=== PATIENT | female | born 1960 | race Caucasian/White ===

== ENCOUNTER 2025-02-16 08:43 | Emergency (ER) | payer MEDICARE, OTHER, SELFPAY ==
[2025-02-16 08:46] VITALS: BP 135/69; PULSE 79; RESP 18; TEMP 36.8; O2SAT 99
--- NOTE | 2025-02-16 09:15 | DI.RAD_ITS ---
Exam(s) XR KNEE RT 4V AP,LAT,CLAUDIA,PAT EXAM: XR KNEE RT 4V AP,LAT,CLAUDIA,PAT CLINICAL HISTORY: right knee pain after flexion injury. TECHNIQUE: 2D digital imaging was performed of the right knee. Four views obtained. Merchant, AP, lateral and PA tunnel views were obtained. COMPARISON: No exams were available for comparison FINDINGS: BONES: No acute fracture is present. No bony destructive lesion is seen. JOINTS: The knee is normally aligned. There is a small joint effusion. SOFT TISSUE: Normal. IMPRESSION: 1. There is no acute fracture or dislocation. 2. Small joint effusion. DATA REPOSITORY: RADIATION DOSE DELIVERED:
--- NOTE | 2025-02-16 09:34 | W.ED.GENAD ---
Discharge Plan Disposition Patient Disposition: Home Condition: Good Discharge Details Clinical Impression: Right knee sprain [facility] Provider: [facility] Provider: Cornel Shine Home Meds and New Rx's Prescriptions: No Action rosuvastatin 10 mg tablet 5 mg PO DAILY sertraline 50 mg tablet 50 mg PO DAILY Patient Comments: TAKE 1 TABLET BY MOUTH EVERY DAY multivitamin Tablet 1 tab PO .every other day Discharge Instructions Instructions: Knee Sprain ED Additional Instructions: At this time your x-ray shows no evidence of significant fracture or severe joint degeneration. As we discussed together I am concerned that there may be an injury to your ACL, albeit mild. Next steps in evaluation include assessment by an technical applications specialist, and potential nonemergent outpatient MRI. We have placed a referral with our orthopedic doctors here, but we will also give you the disc to show the images of your primary care provider in [place] to follow-up with potential technical applications specialist there. Please use the hinged knee brace at all times with activity to help provide increased ability for your knee. Please continue to use Tylenol and Motrin as needed for pain. You can also use topical Voltaren gel to help. If you notice any worsening of your symptoms, or any new symptoms such as vomiting, diarrhea, fever, chills, shortness of breath, chest pain, numbness, weakness, or fainting , please return immediately to the emergency department for reevaluation. Please follow up with your primary care provider as soon as possible for reassessment and reevaluation. As always, it was a pleasure participating in your medical care today. HPI General Date/Time Provider Initiated Documentation: 02/16/25 08:44. HPI Narrative: This is a pleasant 64-year-old female with a past medical history of mitral valve prolapse, high cholesterol, who lives in [place] and [place] in [place]. She presents today for evaluation of right knee pain. Patient states that she has been having pain for months in her right knee, she hit it twice while performing curling this past winter. She states that 2 weeks ago she and her significant other were doing multiple activities up and down stairs for moving and reorganizing their home. While walking up the stairs she had sudden pain and noticed a pop in her right knee. Significant pain was present at that time, especially with ambulation and weightbearing. She utilized a soft knee brace, and crutches for the following week and symptoms certainly improved. She still has pain with ambulation, but the swelling and persistent pain otherwise notably improved. She saw her provider in [place] but the provider was unable to order any imaging or place a referral. It was recommended that she come to the ER for further evaluation and diagnosis. Patient denies any other complaints. She denies any fever or chills. No numbness or tingling. No other modifying factors. She still does admit to continued mild swelling. Related Data Home Medications ?Medication ?Instructions ?Recorded ?Confirmed multivitamin 1 tab PO .every other day 02/16/25 02/16/25 rosuvastatin 10 mg tablet 5 mg PO DAILY 02/16/25 02/16/25 sertraline 50 mg tablet 50 mg PO DAILY 02/16/25 02/16/25 Allergies Allergy/AdvReac Type Severity Reaction Status Date / Time No Known Allergies Allergy Unverified 02/16/25 08:50 General Stated Complaint: Orthopedic MAHNAZ: 4 Exam Narrative Exam Narrative: 1.Const: Well-nourished, Well-developed, appearing stated age 2.Eyes: PERRL, no conjunctival injection, and symmetrical lids. 3.ENT: Atraumatic external nose and ears. Moist MM. Neck: Symmetric, trachea midline, No thyromegaly. 4.CVS: +S1/S2, Peripheral pulses 2+ and equal in all extremities. Brisk capillary refill in all extremities. 5.RESP: Unlabored respiratory effort. Clear to auscultation bilaterally. No wheezes rales or rhonchi 6.GI: Soft, Nontender/Nondistended, No hepatosplenomegaly. No guarding or rebound. 7.MSK: Normocephalic/Atraumatic, mild swelling in the right knee in comparison to the left. Swelling appears to be supra and infrapatellar. No focal tenderness on palpation of the patella, tibial plateau, or proximal fibula. No significant pain with gentle flexion or extension. No pain on Nellie's test except for a subtle amount of pain for lateral movement. No significant pain with varus or valgus stressing. No laxity with varus or valgus stressing. Anterior drawer's test demonstrates slight laxity in comparison to the left knee. Posterior drawer test normal without laxity. Distal exam demonstrates normal sensation, normal pulses, brisk capillary refill. 8.Skin: Warm, Dry. No rashes or lesions. 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 Sensation grossly intact, no focal neurologic deficits. 10.Psych: (AAO) x3. Appropriate mood and affect Course Vital Signs Vital signs: Vital Signs Temperature 36.8 C 02/16/25 08:46 Pulse 79 02/16/25 08:46 Respiratory Rate 18 02/16/25 08:46 Blood Pressure 135/69 02/16/25 08:46 Pulse Oximetry 99 02/16/25 08:46 Temperature 36.8 C 02/16/25 08:46 Pulse 79 02/16/25 08:46 Respiratory Rate 18 02/16/25 08:46 Blood Pressure 135/69 02/16/25 08:46 Pulse Oximetry 99 02/16/25 08:46 Medical Decision Making This is a pleasant 64-year-old female with a past medical history of mitral valve prolapse, high cholesterol, who lives in [place] and [place] in [place]. She presents today for evaluation of right knee pain. Patient states that she has been having pain for months in her right knee, she hit it twice while performing curling this past winter. She states that 2 weeks ago she and her significant other were doing multiple activities up and down stairs for moving and reorganizing their home. While walking up the stairs she had sudden pain and noticed a pop in her right knee. Significant pain was present at that time, especially with ambulation and weightbearing. She utilized a soft knee brace, and crutches for the following week and symptoms certainly improved. She still has pain with ambulation, but the swelling and persistent pain otherwise notably improved. She saw her provider in [place] but the provider was unable to order any imaging or place a referral. It was recommended that she come to the ER for further evaluation and diagnosis. Patient denies any other complaints. She denies any fever or chills. No numbness or tingling. No other modifying factors. She still does admit to continued mild swelling. mild swelling in the right knee in comparison to the left. Swelling appears to be supra and infrapatellar. No focal tenderness on palpation of the patella, tibial plateau, or proximal fibula. No significant pain with gentle flexion or extension. No pain on Nellie's test except for a subtle amount of pain for lateral movement. No significant pain with varus or valgus stressing. No laxity with varus or valgus stressing. Anterior drawer's test demonstrates slight laxity in comparison to the left knee. Posterior drawer test normal without laxity. Distal exam demonstrates normal sensation, normal pulses, brisk capillary refill. Symptoms are concerning for mild ACL injury. X-ray was performed and shows no acute process. Patient does still have continued discomfort with ambulation. Patient would benefit from orthopedic evaluation and further outpatient testing, likely nonemergent MRI. Patient travels back down to [place] and a month. Patient has requested referral with orthopedics here. We we will facilitate that, however I am also going to give them the disk of their images, and recommend that they follow-up closely with their primary care provider in [place], with potential orthopedic referral down there as well. Discussed all of this with the family. Recommend continued NSAID therapy and Voltaren gel. Will give a hinged knee brace for home use. Discussed red flags which to return. I have extensively reviewed the treatment plan and discharge instructions with the patient. I have addressed all patient concerns at this time. The patient was made aware of what symptoms to monitor for that would warrant a return to the emergency department. Discussed the plan with the patient, they demonstrate verbal understanding and agreement with our assessment and plan at this time. The documentation in this chart was dictated using [employer]in[employer] dictation software. Please excuse any dictation errors. FINDINGS: BONES: No acute fracture is present. No bony destructive lesion is seen. JOINTS: The knee is normally aligned. There is a small joint effusion. SOFT TISSUE: Normal. IMPRESSION: 1. There is no acute fracture or dislocation. 2. Small joint effusion. PFSH All Active Problems (Updated 02/16/25 @ 10:21 by Cornel Shine DO) Right knee sprain (Acute) Social History Smoking/Tobacco Use Status: Never Smoking risk assessment performed?: Yes Alcohol Intake: current Alcohol Intake frequency: a few times a week Drug use: Rarely Substance use type: does not use PAWSS Have you Been Recently Intoxicated or Drunk Within the Last 30 days?: No Have you Ever Experienced Previous Episodes of Alcohol Withdrawal?: No Have you ever Experienced Withdrawal Seizures?: No Have you ever Experienced Delirium Tremens(DT)s?: No Have you ever undergone Alcohol Rehabilitation Treatment (i.e, inpt ot outpatient treatment programs)?: No Have you ever Experienced Blackouts?: No Have you ever Combined Alcohol with other Downers within the last 90 days?: No Have you ever Combined Alcohol with any other Substance of Abuse during the last 90 days?: No Positive Blood Alcohol level on Presentation? [PCS.BAL]: No Evidence of Increased Autonomic Activity (i.e. HR>120, tremor, sweating, agitation, nausea)?: No Result: 0
[2025-02-16 11:16] VITALS: BP 135/69; PULSE 79; RESP 18; TEMP 36.8; O2SAT 99
== END 2025-02-16 11:26 | disposition home or self-care (01) ==
PROVIDERS: Emergency Provider Student in an Organized Health Care Education/Training Program
DX: S83.92XA Sprain of unspecified site of left knee, initial encounter (principal); M25.462 Effusion, left knee; X50.9XXA Other and unspecified overexertion or strenuous movements or postures, initial encounter; Y93.01 Activity, walking, marching and hiking
CPT/HCPCS: 99283; 73564

== ENCOUNTER → 2025-02-28 14:08 | Outpatient (BNVA) | payer MEDICARE, OTHER, SELFPAY | PROVIDERS: Visit Provider Student in an Organized Health Care Education/Training Program | DX: S83.241A Other tear of medial meniscus, current injury, right knee, initial encounter (principal); X50.0XXA Overexertion from strenuous movement or load, initial encounter | CPT/HCPCS: 99213 ==

== ENCOUNTER 2025-03-12 02:26 | Outpatient (CLI) | payer MEDICARE, OTHER, SELFPAY ==
--- NOTE | 2025-03-12 14:30 | DI.MRI_ITS ---
Exam(s) MR LOWER JOINT RT WO EXAM: MR LOWER JOINT RT WO CLINICAL HISTORY: pain,TEAR OF MEDIAL MENISCUS RT KNEE,S83.241A. TECHNIQUE: Multiplanar multisequence MRI was performed. COMPARISON: CR XR KNEE RT 4V AP,LAT,CLAUDIA,PAT from 02/16/2025 FINDINGS: BONES: There is no fracture or contusion pattern. JOINTS: a large joint effusion is present. Articular cartilage: Patellofemoral joint: Cartilage thinning, greatest at the medial patellar facet. Medial femoral tibial joint: Articular cartilage is unremarkable. Lateral femoral tibial joint: Articular cartilage is unremarkable. LIGAMENTS/TENDONS: Anterior Cruciate: Unremarkable. Posterior Cruciate: Some edema adjacent to the level of the posterior horn of the medial meniscus. No visible tear. Medial Collateral:Unremarkable. Lateral Collateral ligament complex: Unremarkable. Extensor mechanism: Unremarkable. Medial retinaculum: Unremarkable. Lateral retinaculum: Unremarkable. Popliteus: Unremarkable. MENISCI: The medial meniscus is somewhat peripherally displaced and shows some intermediate signal consistent with degenerative changes. There is a radial tear at the root of the posterior horn. The lateral meniscus is unremarkable. MUSCLES: Unremarkable. SOFT TISSUES: Multiloculated cysts noted anterior to the anterior horn of the medial meniscus, meniscal cysts versus ganglion cysts. Small cystic areas at adjacent to the fibular head, ganglion or synovial cysts.. Some edema anterior to the patellar tendon. IMPRESSION: Radial tear at the root of the posterior horn of the medial meniscus. Edema in the posterior cruciate ligament could represent sprain versus edema adjacent to medial meniscal tear. Ganglion cyst versus meniscal cysts anterior to the anterior horn of the medial meniscus. Patellar chondromalacia. DATA REPOSITORY:
== END 2025-03-12 02:46 ==
PROVIDERS: PCP Family Medicine; Visit Provider Student in an Organized Health Care Education/Training Program
DX: S83.241A Other tear of medial meniscus, current injury, right knee, initial encounter (principal); X58.XXXA Exposure to other specified factors, initial encounter; M22.41 Chondromalacia patellae, right knee
CPT/HCPCS: 73721